=== PATIENT | male | born 1940 | race Caucasian/White ===

== ENCOUNTER → 2018-06-30 | Outpatient (CLI) | payer MEDICARE ==
--- NOTE | 2018-06-30 10:08 | CARD ---
MR#: [id number] Date of Study: 06/30/2018 Ordering Physician: BRITNEY ROSE, Referring Physician: BRITNEY ROSE Tech: Mariela Arellano RDCS APPROVED REPORT EXAM: Two-dimensional and M-mode echocardiogram with Doppler and color Doppler. Other Information Quality : Good INDICATION Abnormal ECG 2D DIMENSIONS RVDd2.7 (2.9-3.5cm)Left Atrium(2D)2.3 (1.6-4.0cm) IVSd1.0 (0.7-1.1cm)Aortic Root(2D)3.3 (2.0-3.7cm) LVDd3.9 (3.9-5.9cm)LVOT Diameter2.1 (1.8-2.4cm) PWd0.9 (0.7-1.1cm)LVDs1.9 (2.5-4.0cm) FS (%) 30.0 %SV55.6 ml LVEF(%)60.0 (>50%) Aortic Valve AoV Peak Gonzalo.137.5cm/sAoV VTI26.3cm AO Peak GR.7.6mmHgLVOT Peak Gonzalo.111.3cm/s LVOT VTI 23.54cmAO Mean GR.4mmHg HYACINTH (VMAX)2.75uk0BHE (VTI)3.16cm2 Mitral Valve MV E Evpwmgbx76.4cm/sMV DECEL AOOC204dj MV A Eqtkhqca70.9cm/sMV AOT34fg E/A Ratio0.9MVA (PHT)2.92cm2 TDI E/Lateral E'14.4E/Medial E'12.7 Pulmonary Vein S1 Liqssdas40.4cm/sD2 Bmrmiznl98.1cm/s LEFT VENTRICLE The left ventricle is normal size. There is normal left ventricular wall thickness. The left ventricu lar systolic function is normal and the ejection fraction is within normal range. The Ejection Fracti on is 55-60%. There is normal LV segmental wall motion. Transmitral Doppler flow pattern is Grade I-a bnormal relaxation pattern. RIGHT VENTRICLE The right ventricle is normal size. The right ventricular systolic function is normal. ATRIA The left atrium size is normal. The right atrium size is normal. The interatrial septum is intact wit h no evidence for an atrial septal defect or patent foramen ovale as noted on 2-D or Doppler imaging. AORTIC VALVE The aortic valve is calcified but opens well. Doppler and Color Flow revealed no significant aortic r egurgitation. There is no significant aortic valvular stenosis. MITRAL VALVE The mitral valve is calcified but opens well. There is no evidence of mitral valve prolapse. There is no mitral valve stenosis. Doppler and Color-flow revealed trace mitral regurgitation. TRICUSPID VALVE The tricuspid valve is normal in structure and function. Doppler and Color Flow revealed trace tricus pid regurgitation. There is no tricuspid valve stenosis. PULMONIC VALVE The pulmonic valve is not well visualized. Doppler and Color Flow revealed mild pulmonic valvular reg urgitation. There is no pulmonic valvular stenosis. GREAT VESSELS The aortic root is normal in size. The ascending aorta is at the upper limits of normal. The IVC was not visualized. PERICARDIAL EFFUSION There is no evidence of significant pericardial effusion. Critical Notification Critical Value: No <Conclusion> The left ventricle is normal size. The left ventricular systolic function is normal and the ejection fraction is within normal range. The Ejection Fraction is 55-60%. There is no significant aortic valvular stenosis. Doppler and Color Flow revealed no significant aortic regurgitation. Doppler and Color-flow revealed trace mitral regurgitation. Doppler and Color Flow revealed trace tricuspid regurgitation. Signed by : Samson Armenta MD Electronically Approved : 06/30/2018 10:08:02
== END | disposition home or self-care (01) ==
LOC: NM 08:16
PROVIDERS: ATTEND Internal Medicine Cardiovascular Disease
DX: R94.31 Abnormal electrocardiogram [ECG] [EKG] (principal)
CPT/HCPCS: 93306

== ENCOUNTER → 2018-07-04 | Outpatient (CLI) | payer MEDICARE ==
[~2018-07-04] MED LIST: REGADENOSON 0.4 MG/5 ML DISP.SYRIN. IV ONE
--- NOTE | 2018-07-04 11:14 | RAD ---
MR#: [id number] Date of Study: 07/04/2018 Ordering Physician: BRITNEY ROSE, Referring Physician: CONNER NORRIS Tech: RYANN Casey ARRT (Gera) (N) APPROVED REPORT Test Type: Exercise Stress Nurse/Tech: Suni Roman RN Test Indications: abnormal EKG during yearly physical with primary doctor Cardiac History: No known cardiac Medications: See Electronic Medical Record Medical History: See Electronic Medical Record Resting ECG: SR Resting Heart Rate: 62 bpm Resting Blood Pressure: 121/69mmHg Pretest Chest Pain: No chest pain Nurse/Tech Notes S1,S2. Lungs clear to auscultation. Consent: The procedure was explained to the patient in lay terms. Informed consent was witnessed. Mario Alberto eout was entered into [employer]. History and Stress Test performed by RYANN Casey ARRT (R) (N) Stress Symptoms Dyspnea,Fatigue POST EXERCISE Reason for Termination: Reached target heart rate, Fatigue Target HR: Yes Max HR: 207 bpm 173% of Maximum Predicted HR: 119 bpm Exercise duration: 5:00 min:sec, 2 Stage Exercise capacity: 7.0METs Max Blood Pressure: 145/66mmHg Blood Pressure response to exercise: Normal blood pressure response during stress. Heart Rate response to exercise: WNL Chest Pain: No. Arrhythmia: Yes. PVC's ST Change: Yes. some artifact--ST elevation in leads II,III, and V3-V6 during exercise but returned t o baseline by end of recovery period. INTERPRETATION Stress EKG Conclusion: Baseline EKG showed sinus rhythm. Non diagnosic changes at peak stress. No a rrhythmias. Imaging Protocol IMAGE PROTOCOL: Rest Tc-99m/stress Tc-99m 1 day Rest: Stress: Viability: Radiopharm.Tc99m WehpnekmtNp23l Sestamibi Ifxq98lTx 33.6mCi Img Date 07/04/2018 07/04/2018 Inj-Img [id number]. 60min. Rest Admin Site:IV - Right HandAdministrator:RYANN Casey ARRT (Gera)(N) Stress Admin Site: IV - Right HandAdministrator: Jeannie Monae, RT (R)(N) STRESS DATA End Diast. Vol.61.0mlLVEDV index BSA32.0ml End Syst. Vol.14.0mlLVESV index BSA7.0ml Myocardial Mass99.0gEject. Okjbixwk98.0% Stress Scores Regional WT0.00Summed WT0.00 Regional WM0.00Summed WM0.00 Study quality was good. Left Ventricular size was Normal at Rest and Stress. Lung uptake was . Left Ventricular ejection fraction is 73%. The rest and stress images show normal perfusion, normal contraction and thickening. LV Perf. Quant 17 Seg. SSS0.00 17 Seg. SRS1.00 17 Seg. SDS0.00 Stress Defect Extent (% LAD)0.00Rest Defect Extent (% LAD)0.00Rev. Defect Extent (% LAD)0.00 Stress Defect Extent (% LCX) 0.00Rest Defect Extent (% LCX)0.00Rev. Defect Extent (% LCX)0.00 Stress Defect Extent (% RCA)0.00Rest Defect Extent (% RCA)5.60Rev. Defect Extent (% RCA)0.00 Stress Defect Extent (% MEGAN)0.00Rest Defect Extent (% MEGAN)1.10Rev. Defect Extent (% MEGAN)0.00 Conclusion 1. Treadmill exercise cardioisotope stress test did not show any evidence of ischemia or infarct. 2. Normal left ventricular systolic function with ejection fraction calculated at 73%. 3. Low risk for cardiac events. Signed by : Britney Rose, Electronically Approved : 07/04/2018 11:13:53
== END | disposition home or self-care (01) ==
LOC: NM 07:20
PROVIDERS: ATTEND Internal Medicine Cardiovascular Disease
DX: R94.31 Abnormal electrocardiogram [ECG] [EKG] (principal)
CPT/HCPCS: 78452; 93017; 96374; 96376; A9500